=== PATIENT | female | born 1960 | race Caucasian/White ===

== ENCOUNTER → 2018-12-13 | Outpatient (CLI) | payer OTHER ==
[~2018-12-13] MED LIST: ACET-704 PO; ASPI-630 PO; BUPR300T3 PO; CETI10TA22 PO; FENO200C PO; HYDR-2145 PO; LISI-334 PO; METF850T8 PO; NIAC1000 PO; RALO60TA PO; RANI-376 PO; SITA50TA PO
[2018-12-13 09:56] LABS: PROTHROMBIN TIME PATIENT 12.4 SEC (11.7-14.0)
[2018-12-13 11:50] LABS: BILIRUBIN,URINE NEGATIVE (NEG); CLARITY,URINE CLEAR; COLOR,URINE YELLOW; NITRITE,URINE NEGATIVE (NEG); PROTEIN,URINE NEGATIVE (NEG-TRACE); UROBILINOGEN,URINE 0.2 mg/dL (0.2 mg/dL)
[2018-12-13 12:08] LABS: BACTERIA,URINE 0 /HPF (0-FEW); RBC,URINE 0 /HPF (0-2); SQUAMOUS EPITHELIAL CELL,UR FEW /LPF; WBC,URINE 0 /HPF (0-4)
--- NOTE | 2018-12-13 14:07 | EKG ---
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
--- NOTE | 2018-12-13 14:37 | RAD ---
AP and Lateral Views of the Chest 12/13/2018 9:02 AM Indication: Preoperative. History of hypertension. Comparison: None Findings: There is no focal consolidation or infiltrate identified. The cardiomediastinal silhouette is within normal limits. There is no evidence of pneumothorax or pleural effusion. No acute osseous abnormalities are identified. Impression: No evidence of acute cardiopulmonary process. Electronically signed by: Morteza Syed MD (12/13/2018 2:34 PM) [id number]
== END | disposition home or self-care (01) ==
LOC: SURGPAT 13:24
PROVIDERS: ATTEND Orthopaedic Surgery
DX: Z01.818 Encounter for other preprocedural examination (principal); M17.0 Bilateral primary osteoarthritis of knee; I10 Essential (primary) hypertension; Z88.2 Allergy status to sulfonamides; Z91.041 Radiographic dye allergy status
CPT/HCPCS: 36415; 71046; 81001; 82306; 85610; 85651; 85730; 87641; 93005

== ENCOUNTER → 2020-10-10 | Outpatient (CLI) | payer OTHER ==
[2018-12-31 08:04] VITALS: BP 112/74
[~2020-10-10] MED LIST changes: -CETI10TA22 PO; +CETI10TA74 PO; +ERGO500027 PO; -LISI-334 PO; +LISI20TA18 PO; +METO25TA4 PO; +OXYC5CAP PO; +TRAM50TA PO; +WARF5TAB2 PO
--- NOTE | 2020-10-10 18:05 | KCIC ---
EXAMINATION: MRI RIGHT SHOULDER WITHOUT IV CONTRAST CLINICAL HISTORY: Right shoulder pain and limited range of motion, possible frozen shoulder since Jun 2020. TECHNIQUE: Multiplanar multisequential images obtained through the shoulder without intravenous contr ast. COMPARISON: Right shoulder radiographs 09/10/2020 FINDINGS: Evaluation limited by prominent motion artifact on multiple sequences despite repeat attempts at scan ashutosh. TENDONS: - Supraspinatus: Low-grade partial-thickness articular sided tear in the mid to posterior footplate a nd moderate tendinosis. - Infraspinatus: Moderate tendinosis without definite tear - Subscapularis: Mild tendinosis without definite tear. - Teres Minor: Within normal limits. - Biceps Tendon: The long head biceps tendon is intact and appropriately located. MUSCLES: Muscle bulk and signal intensity are within normal limits. LABRUM: Circumferential labral degeneration with degenerative tearing suspected in the superior labru m but suboptimally evaluated due to motion artifact. GLENOHUMERAL JOINT: - Joint Fluid: Trace joint effusion. - Cartilage: Tiny area of subchondral marrow reactive/cystic changes in the anterior inferior glenoid , compatible with overlying full-thickness chondral loss/fissuring. ACROMIOCLAVICULAR JOINT: Moderate to severe hypertrophic degenerative changes. BONES/MARROW: No evidence of acute fracture or suspicious marrow replacing process. OTHER: Minimal edema in the rotator interval. Evaluation of the joint capsule and glenohumeral ligame nts limited by motion artifact, however, there is no definitive evidence of significant capsular or g lenohumeral ligament thickening. Mild thickening and fluid in the subacromial/subdeltoid bursa, nonsp ecific but can be seen with mild bursitis. IMPRESSION: Low-grade partial thickness supraspinatus tendon tear and mild to moderate rotator cuff tendinosis. N o full-thickness rotator cuff tear. Findings compatible with mild subacromial/subdeltoid bursitis. No definitive evidence of adhesive capsulitis on limited evaluation. Degenerative changes as described. Electronically signed by: Lior Cole DO (10/10/2020 6:03 PM) [id number]
== END ==
LOC: KCIC MRI 15:08
PROVIDERS: ATTEND Orthopaedic Surgery
DX: M19.011 Primary osteoarthritis, right shoulder (principal); M75.01 Adhesive capsulitis of right shoulder; M75.51 Bursitis of right shoulder
CPT/HCPCS: 73221

== ENCOUNTER → 2020-10-26 | Outpatient (CLI) | payer OTHER ==
[2018-12-31 08:04] VITALS: BP 112/74
[~2020-10-26] MED LIST changes: +ACET1TAB33 PO; +OXYC1TAB15 PO
== END ==
LOC: LAB 12:57
PROVIDERS: ATTEND Orthopaedic Surgery
DX: Z01.812 Encounter for preprocedural laboratory examination (principal); Z20.822 Contact with and (suspected) exposure to COVID-19
CPT/HCPCS: U0003; U0005

== ENCOUNTER 2020-10-30 05:55 | Day surgery (SDC) | payer OTHER ==
[~2020-10-30 05:55] MED LIST changes: -OXYC1TAB15 PO; +PROPOFOL 10 MG/ML (20ML) VIAL. IV ONE
[2020-10-30] MEDS ORDERED: fentaNYL PF VIAL 100 MCG/2 ML VIAL IVP PRN (06:00)
[2020-10-30] MEDS ORDERED: PROCHLORPERAZINE 10 MG/2 ML VIAL. IVP PRN (06:00)
[2020-10-30] MEDS ORDERED: IV RINGERS,LACTATED 1000ML 1,000 ML IV SCH (06:00)
[2020-10-30] MEDS ORDERED: MORPHINE SULFATE 2 MG/ML VIAL. IVP PRN (06:00)
[2020-10-30] MEDS ORDERED: HYDROmorphone 2 MG/ML VIAL IVP PRN (06:00)
[2020-10-30] MEDS ORDERED: oxyCODONE/APAP 5/325 1 TAB TABLET PO ONE (07:15)
[2020-10-30] MEDS ORDERED: fentaNYL PF VIAL 100 MCG/2 ML VIAL ONE (07:25)
[2020-10-30] MEDS: fentaNYL PF VIAL 100 MCG/2 ML VIAL IVP PRN ×2 (07:26→07:37)
[2020-10-30 07:28] VITALS: BP 134/76
[2020-10-30] MEDS ORDERED: BUPIVACAINE-EPI 0.5%-1:200000 MPF 30 ML VIAL. INJ ONE (07:30)
[2020-10-30] MEDS ORDERED: methylPREDNISolone ACETATE 80 MG/ML VIAL. IM ONE (07:30)
[2020-10-30] MEDS ORDERED: OXYC1TAB15 PO (07:34)
[2020-10-30] MEDS ORDERED: TRAM50TA PO (07:34)
--- NOTE | 2020-10-30 07:35 | DISCH ---
DISCHARGE INSTRUCTIONS Condition on Discharge Condition on Discharge: Stable Activity After Discharge Activity Instructions for Disc: Activity as tolerated Exercise Instruction after Dis: Exercise per therapy, Progress as tolerated Driving Instructions after Dis: Do not drive today Weight Bearing Status after Di: As tolerated Diet after Discharge Diet after Discharge: Regular, Diabetic No Calorie Level Liquid Texture: Thin Liquid Wound Incision Care Wound/Incision Care: Ice to area for comfort Checks after Discharge Checks after discharge: Check blood sugar, ac/hs Community/Resources/Services Services at Discharge: PT EVALUATE & TREAT (Immediate aggressive passive and active range of motion advancing to strengthening as tolerated no restrictions sling or immobilization at all) Contacting the [facility] after DC Call your doctor for: Concerns you may have Follow-Up Follow up with: Dr. Foster or Paulina 1 week Treatment/Equipment after DC Adaptive Equipment Issued: None JERI FOSTER MD October 30, 2020 07:35
--- NOTE | 2020-10-30 07:46 | PDOC4 ---
Operative Note Operative Note Date of surgery: 10/30/2020 Preoperative diagnosis: Adhesive capsulitis right shoulder Postoperative diagnosis: Same Operative procedure: Manipulation under anesthesia right shoulder adhesive capsulitis, injection glenohumeral joint Surgeon: Kristin Anesthesia: Deep propofol sedation provided by anesthesia Estimated blood loss: None Complications: None Operative indications: Patient underwent previous surgery and has been doing functionally much better in terms of her pain relief and strength however has failed to regain her terminal range of motion despite ongoing physical therapy and I talked to her about the natural history of adhesive capsulitis and the typical timeframe without intervention. She is likewise failed to progress with physical therapy and we talked about the possibility of manipulation under anest hesia with ongoing physical therapy administered as soon as possible and the possibility of recurrence or other medical complications she agrees to proceed with the surgical treatment of manipulation Operative text: Patient was identified procedure verified patient placed in the supine position on the stretcher in preop holding. After timeout was performed and patient procedure identified and verified an adequate amount of deep propofol sedation provided by anesthesia and the right shoulder was first exam ined and found to lack terminal 50 degrees of elevation terminal 40 degrees of external rotation and abduction and about the terminal 30 degrees of internal rotation all of which were corrected to full motion with manipulation with palpable and audible release of the scar tissue. No instability was noted after sikh of her full motion and under sterile conditions glenohumeral joint was injected with 1 cc 80 mg/cc Depo-Medrol and 4 cc of half percent Marcaine with epinephrine. She was already scheduled for physical therapy on and in the interim encouraged to immediately stretch to her tolerance and no immobilization whatsoever JERI CHU MD October 30, 2020 07:45
== END 2020-10-30 08:00 | disposition home or self-care (01) ==
LOC: SURG 05:55
PROVIDERS: ATTEND Orthopaedic Surgery
DX: M75.01 Adhesive capsulitis of right shoulder (principal); E78.00 Pure hypercholesterolemia, unspecified; I10 Essential (primary) hypertension; K21.9 Gastro-esophageal reflux disease without esophagitis; E11.9 Type 2 diabetes mellitus without complications; M19.90 Unspecified osteoarthritis, unspecified site; F32.9 Major depressive disorder, single episode, unspecified; Z90.710 Acquired absence of both cervix and uterus; Z98.51 Tubal ligation status; Z98.890 Other specified postprocedural states; Z87.891 Personal history of nicotine dependence; Z79.84 Long term (current) use of oral hypoglycemic drugs; Z79.899 Other long term (current) drug therapy; Z72.89 Other problems related to lifestyle; Z91.013 Allergy to seafood; Z91.041 Radiographic dye allergy status; Z88.8 Allergy status to other drugs, medicaments and biological substances
CPT/HCPCS: 20610; 23700; 82962; J2704; J3010